=== PATIENT | male | born 1935 | race Caucasian/White ===

== ENCOUNTER → 2016-09-01 | Outpatient (CLI) | payer MEDICARE, OTHER | END | disposition home or self-care (01) | LOC: GMAM 11:44 | PROVIDERS: ATTEND Family Medicine | DX: M10.9 Gout, unspecified (principal) ==

== ENCOUNTER → 2017-02-21 | Outpatient (CLI) | payer MEDICARE, OTHER | LOC: GMAM 13:37 | PROVIDERS: ATTEND Family Medicine | DX: M10.9 Gout, unspecified (principal); Z12.5 Encounter for screening for malignant neoplasm of prostate | CPT/HCPCS: 84550; G0103 ==

== ENCOUNTER → 2017-09-22 | Outpatient (CLI) | payer MEDICARE, OTHER | LOC: GMAM 11:27 | PROVIDERS: ATTEND Family Medicine | DX: M10.9 Gout, unspecified (principal) ==

== ENCOUNTER → 2018-11-13 | Outpatient (CLI) | payer MEDICARE, OTHER | LOC: GMAM 11:27 | PROVIDERS: ATTEND Family Medicine | DX: M10.9 Gout, unspecified (principal); I10 Essential (primary) hypertension ==

== ENCOUNTER → 2018-11-14 | Outpatient (CLI) | payer MEDICARE, OTHER | LOC: GMAM 14:27 | PROVIDERS: ATTEND Family Medicine | DX: D64.9 Anemia, unspecified (principal) ==

== ENCOUNTER → 2018-11-22 | Outpatient (CLI) | payer MEDICARE, OTHER ==
--- NOTE | 2018-11-23 14:42 | CT ---
EXAM DESCRIPTION: Abdomen/Pelvis w/o Contrast: Computed Tomography. CLINICAL HISTORY: 83 years Male Chronic kidney disease, stage 4 COMPARISON: CT scan abdomen without IV contrast 05/06/2015. TECHNIQUE: Spiral-axial scans 2.5 x 2.5 mm intervals through the abdomen and pelvis without oral or IV contrast. Coronal and sagittal 2.0 mm reconstructions. Total Exam DLP: 1161.07 mGy-cm. This exam was performed according to our departmental CT dose-optimization program which includes automated exposure control, adjustment of the mA and/or kV according to patient size and/or use of iterative reconstruction technique; to reduce radiation dose to as low as reasonably achievable (ALARA). FINDINGS: Lung bases and pleura: Coronary artery stent. Lung bases negative. Liver, stomach, spleen, and adrenal glands: 1.4 x 1.5 cm mass in the left adrenal gland with Hounsfield density -15. Consistent with a lipid rich adrenal adenoma and stable since the prior study. Right adrenal not seen. Moderate hiatal hernia is stable. Other organs negative Pancreas, Gallbladder, and Ducts: Surgical clips in the gallbladder fossa with no fluid. Normal caliber common bile duct. Uncinate process of the pancreas is prominent but no mass, and otherwise negative. Kidneys and Ureters: Right nephrectomy with surgical clips in the right renal fossa no soft tissue mass or fluid. To numerous to count renal cysts with no hydronephrosis. 6 mm radiodense cyst on the medial cortex of the upper pole just above the renal hilum. Slightly enlarged since the prior study. 1.5 cm radiodense cyst on the medial cortex of the lower pole. Stable size but slightly more dense than on the prior study. 3.5 cm cyst with calcification abutting the renal parenchyma stable appearance and density since the prior study, slightly larger. Proximal right ureter is clipped to the anterior right psoas muscle. Left ureter is unremarkable.. Mesentery: No free fluid or free air. Aorta: Ectasia and advanced atherosclerosis of the abdominal aorta. 4.1 x 3.2 cm infrarenal abdominal aortic aneurysm at the level of the L2 vertebral body, with the posterior wall abutting the anterior vertebral body. 3.6 x 3.1 cm on the prior study. Small Bowel: Unremarkable. Terminal Ileum/Cecum: Normal caliber. Appendix not seen. No inflammatory changes. Colon: Normal caliber with minimal fecal matter. Diverticula in the distal descending colon and proximal sigmoid colon which is minimally redundant. No complications. Pelvic Organs: Brachytherapy seeds in the prostate gland. Minimal thickening of the urinary bladder which is not well distended. Spine and Bony Pelvis: Advanced spondylosis and anterolisthesis L5-S1 with spondylosis at multiple levels of the included thoracic spine. Bilateral L5 pars sclerosis but no spondylolysis. Bilateral foraminal narrowing. Abdominal Wall/Back Soft Tissues: Diastases at the umbilicus but no hernia. A short segment of small bowel is abutting this anterior protrusion. Stable. Bilateral fatty inguinal hernias not containing bowel also unchanged. IMPRESSION: 1. Enlarged left kidney with multiple renal cysts too numerous to count. There are subtle changes in density of some of the previously demonstrated cysts, but this is interpreted to be clinically insignificant. No hydronephrosis, no radiodense stones, and no perirenal fluid or inflammation. Left ureter is unremarkable. Surgical clips right renal fossa with no fluid or soft tissue mass. 2. 4.1 cm abdominal aortic aneurysm. Slightly enlarged since the prior study. Recommend follow-up every 12 months and vascular consultation. Reference: J Am Lucille Radiol 2013;10:789-794. 3. Diverticulosis in the distal colon is stable. No change in advanced spondylosis and grade 1 anterolisthesis at L5-S1. Stable hernias bilateral inguinal canal and umbilicus. Small bowel abutting the umbilical diastases but no herniation. Stable 0.5 cm lipid rich left adrenal adenoma. . Electronically signed by: Parish Pompa MD 11/23/2018 2:40 PM CDT
== END ==
LOC: CT 13:03
PROVIDERS: ATTEND Internal Medicine Nephrology
DX: N18.4 Chronic kidney disease, stage 4 (severe) (principal); N28.1 Cyst of kidney, acquired; I71.4 Abdominal aortic aneurysm, without rupture; K57.30 Diverticulosis of large intestine without perforation or abscess without bleeding; K40.20 Bilateral inguinal hernia, without obstruction or gangrene, not specified as recurrent; D35.02 Benign neoplasm of left adrenal gland; M47.897 Other spondylosis, lumbosacral region; M43.17 Spondylolisthesis, lumbosacral region

== ENCOUNTER → 2019-01-08 | Outpatient (CLI) | payer MEDICARE, OTHER | LOC: GMAM 14:21 | PROVIDERS: ATTEND Family Medicine | DX: D47.2 Monoclonal gammopathy (principal) ==